=== PATIENT | female | born 2000 | race Caucasian/White ===

== ENCOUNTER 2023-10-06 21:00 | Emergency (ER) | payer OTHER ==
[~2023-10-06] VITALS: Ht 167.6 cm; Wt 79.8 kg
[2023-10-07 04:51] LABS: URINE PREG TEST NEGATIVE (NEGATIVE)
[2023-10-07 04:59] LABS: BASO # 0.1 10^3/uL (0.0-0.2); BASO % 0.6 % (0.0-1.0); EOS # 0.1 10^3/uL (0.0-0.5); EOS % 0.7 % (0.0-3.0); HEMATOCRIT 38.1 % (36.0-47.0); HEMOGLOBIN 13.1 g/dl (12.0-15.5); LYMPH # 3.5 10^3/uL (1.5-5.0); LYMPH % 36.3 % (24.0-44.0); MEAN CORPUSCULAR HEMOGLOBIN 32.3 pg (27.0-33.0); MEAN CORPUSCULAR HGB CONC 34.4 g/dl (32.0-36.5); MEAN CORPUSCULAR VOLUME 93.8 fl (80.0-96.0); MONO # 0.8 10^3/uL (0.0-0.8); MONO % 8.5 % (2.0-8.0); NEUTROPHILS # 5.2 10^3/uL (1.5-8.5); NEUTROPHILS % 53.6 % (36.0-66.0); PLATELET COUNT, AUTOMATED 273 10^3/uL (150-450); RED BLOOD COUNT 4.06 10^6/uL (4.00-5.40); WHITE BLOOD COUNT 9.6 10^3/uL (4.0-10.0)
[2023-10-07 05:16] LABS: AMPHETAMINES LEVEL URINE NEGATIVE (NEGATIVE); BARBITURATES URINE NEGATIVE (NEGATIVE); BENZODIAZEPINES URINE NEGATIVE (NEGATIVE); COCAINE METABOLITE URINE NEGATIVE (NEGATIVE); METHADONE URINE NEGATIVE (NEGATIVE); OPIATES URINE NEGATIVE (NEGATIVE); PHENCYCLIDINE URINE NEGATIVE (NEGATIVE)
[2023-10-07 05:17] LABS: CANNABINOIDS URINE NEGATIVE (NEGATIVE)
[2023-10-07 05:32] LABS: ETHYL ALCOHOL (ETHANOL) 0.005 % (0.000-0.010)
[2023-10-07 05:33] LABS: BLOOD UREA NITROGEN 13 MG/DL (9-23); CARBON DIOXIDE LEVEL 25 MMOL/L (20-31); CHLORIDE LEVEL 107 MMOL/L (98-107); GLOMERULAR FILTRATION RATE > 60.0 (>60); GLUCOSE, FASTING 89 MG/DL (60-100); HCG, SERUM QUALITATIVE NEGATIVE (NEGATIVE); MAGNESIUM LEVEL 1.8 MG/DL (1.8-2.4); POTASSIUM SERUM 3.8 MMOL/L (3.5-5.1); SODIUM LEVEL 137 MMOL/L (136-145)
[2023-10-07 05:36] LABS: THYROID STIMULATING HORMONE 6.173 uIU/ML (0.55-4.78)
[2023-10-07] MEDS: NS 1,000 ML IV ONE (05:57)
[2023-10-07] MEDS: METOCLOPRAMIDE INJ 10MG/2ML VIAL IV ONE (06:01)
[2023-10-07] MEDS: KETOROLAC 30 MG/ML 1ML VIAL IM ONE (06:01)
[2023-10-07] MEDS: ACETAMINOPHEN 500 MG TAB PO ONE (06:02)
[2023-10-07] MEDS: MAG SULF 1GM/100ML (MAG RUN) 1 GM in IV 1 EA IV ONE (07:15)
[2023-10-07 07:26] VITALS: BP 118/79; TEMP 97.8; O2SAT 100
[2023-10-08] MEDS ORDERED: ETON68IM SC (10:02)
[2023-10-08] MEDS ORDERED: FLUO-365 PO (10:02)
[2023-10-08] MEDS ORDERED: LUNE2TAB28 PO (10:02)
[2023-10-08] MEDS ORDERED: TOPI200T7 PO (10:02)
== END 2023-10-07 07:39 | disposition home or self-care (01) ==
LOC: M ED 21:00
DX: G43.909 Migraine, unspecified, not intractable, without status migrainosus (principal); F17.290 Nicotine dependence, other tobacco product, uncomplicated; Z88.8 Allergy status to other drugs, medicaments and biological substances; Z79.899 Other long term (current) drug therapy
CPT/HCPCS: 70450; 71045; 80048; 80307; 82077; 83735; 84443; 84703; 85025; 93005; 93041; 94760; 96361; 96372; 96374; 96375; 99285; J1100; J1885; J2765

== ENCOUNTER 2023-10-08 09:49 | Emergency (ER) | payer OTHER ==
[~2023-10-08] VITALS: Ht 167.6 cm; Wt 81.3 kg
[2023-10-08] MEDS ORDERED: ETON68IM SC (10:02)
[2023-10-08] MEDS ORDERED: LUNE2TAB28 PO (10:02)
[2023-10-08] MEDS ORDERED: TOPI200T7 PO (10:02)
[2023-10-08] MEDS ORDERED: FLUO-365 PO (10:02)
[2023-10-08] MEDS: NS 1,000 ML IV ONE (11:42)
[2023-10-08] MEDS: METOCLOPRAMIDE INJ 10MG/2ML VIAL IV ONE (11:42)
[2023-10-08] MEDS: KETOROLAC 30 MG/ML 1ML VIAL IV ONE (11:42)
[2023-10-08] MEDS: diphenhydrAMINE 50MG/ML VIAL IV ONE (11:43)
[2023-10-08 11:52] LABS: BASO # 0.1 10^3/uL (0.0-0.2); BASO % 0.6 % (0.0-1.0); EOS % 0.4 % (0.0-3.0); HEMATOCRIT 38.9 % (36.0-47.0); HEMOGLOBIN 13.1 g/dl (12.0-15.5); LYMPH # 4.1 10^3/uL (1.5-5.0); LYMPH % 41.1 % (24.0-44.0); MEAN CORPUSCULAR HGB CONC 33.7 g/dl (32.0-36.5); MEAN CORPUSCULAR VOLUME 95.1 fl (80.0-96.0); MONO # 0.7 10^3/uL (0.0-0.8); MONO % 6.6 % (2.0-8.0); NEUTROPHILS # 5.1 10^3/uL (1.5-8.5); PLATELET COUNT, AUTOMATED 268 10^3/uL (150-450); RED BLOOD COUNT 4.09 10^6/uL (4.00-5.40); WHITE BLOOD COUNT 9.9 10^3/uL (4.0-10.0)
[2023-10-08 13:58] LABS: BLOOD UREA NITROGEN 13 MG/DL (9-23); CALCIUM LEVEL 7.4 MG/DL (8.5-10.1); CARBON DIOXIDE LEVEL 22 MMOL/L (20-31); CHLORIDE LEVEL 114 MMOL/L (98-107); CREATININE FOR GFR 0.85 MG/DL (0.55-1.30); GLOMERULAR FILTRATION RATE > 60.0 (>60); GLUCOSE, FASTING 85 MG/DL (60-100); POTASSIUM SERUM 3.6 MMOL/L (3.5-5.1); SODIUM LEVEL 143 MMOL/L (136-145)
[2023-10-08 14:01] LABS: HCG, SERUM QUALITATIVE NEGATIVE (NEGATIVE)
[2023-10-08 18:44] VITALS: BP 124/68; TEMP 98.1; O2SAT 93
== END 2023-10-08 18:59 | disposition home or self-care (01) ==
LOC: M ED 09:49
DX: G43.909 Migraine, unspecified, not intractable, without status migrainosus (principal); Z88.8 Allergy status to other drugs, medicaments and biological substances; Z79.899 Other long term (current) drug therapy
CPT/HCPCS: 70551; 80048; 84703; 85025; 96361; 96374; 96375; 99285; J1200; J1885; J2765

== ENCOUNTER → 2024-01-20 | Outpatient (CLI) | payer OTHER ==
[~2024-01-20] MED LIST: ETON68IM SC; FLUO-365 PO; LUNE2TAB28 PO; TOPI200T7 PO
== END ==
LOC: M PLAIMG 07:40
PROVIDERS: ATTEND Physician Assistant Medical
DX: J32.0 Chronic maxillary sinusitis (principal)

== ENCOUNTER → 2024-05-27 | Outpatient (CLI) | payer OTHER | LOC: M CARPUL 08:58 | PROVIDERS: ATTEND Student in an Organized Health Care Education/Training Program | DX: R55 Syncope and collapse (principal) ==

== ENCOUNTER → 2024-07-08 | Outpatient (REF) | LOC: M PLAIMG 08:30 | PROVIDERS: ATTEND Internal Medicine | DX: R06.02 Shortness of breath (principal) ==